=== PATIENT | male | born 1995 | race African-American/Black ===

== ENCOUNTER 2019-03-05 01:35 | Emergency (ER) | payer OTHER ==
[2019-03-05] MEDS ORDERED: NA CHLORIDE 0.9% 1,000 ML ONE (02:21)
[2019-03-05] MEDS ORDERED: ONDANSETRON 4 MG/2 ML VIAL ONE (02:21)
[2019-03-05 03:03] LABS: Absolute Lymphocytes (CBC) 2.3 K/uL (0.7-4.9); Absolute Monocytes 0.5 K/uL (0.1-1.3); Absolute Neutrophil 1.9 K/uL (1.8-8.0); Basophils % 0.3 % (0-1.3); Eosinophils % 4.4 % (0-4.4); Hematocrit 47.5 % (39.6-49.0); Lymphocytes % 46.4 % (15.3-44.8); MPV 8.8 fL (7.6-11.3); Monocytes % 9.6 % (3.3-12.3); RBC Red Blood Cell Count 5.27 M/uL (4.33-5.43)
[2019-03-05 03:18] LABS: ALT/SGPT 24 U/L (12-78); AST/SGOT 21 U/L (15-37); Albumin 3.9 g/dL (3.4-5.0); Alkaline Phosphatase 91 U/L (45-117); BUN Blood Urea Nitrogen 8 mg/dL (7-18); Bicarbonate 28 mmol/L (21-32); Bilirubin Direct 0.1 mg/dL (0-0.2); Bilirubin Total 0.3 mg/dL (0.2-1.0); Glucose Level 85 mg/dL (74-106); Lipase 200 U/L (73-393); Potassium 3.7 mmol/L (3.5-5.1); Protein, Total 7.4 g/dL (6.4-8.2); Sodium Level 141 mmol/L (136-145)
--- NOTE | 2019-03-05 03:28 | EDPHYS ---
Physician Documentation [facility] Name: Michael Garibay Age: 23 yrs Sex: Male : 1995 Arrival Date: 03/05/2019 Time: 01:40 Bed 7 Private MD: ED Physician Sameer Landry HPI: 03/05 01:57 This 23 yrs old Black Male presents to ER via Ambulatory with complaints of Cough, jr8 Vomiting. 01:57 The patient or guardian reports cough, that is intermittent, described as mild, with no jr8 sputum. Onset: The symptoms/episode began/occurred gradually, 2 week(s) ago. Severity of symptoms: in the emergency department the symptoms have improved, mildly. Modifying factors: The symptoms are alleviated by nothing, the symptoms are aggravated by nothing. Associated signs and symptoms: Pertinent positives: nausea, vomiting, Pertinent negatives: chest pain, diarrhea, fever, sore throat. The patient has not experienced similar symptoms in the past. The patient has not recently seen a physician. Patient presents to the ER for the complaint of vomiting. Mother has accompanied patient and reports that he has had a dry cough with congestion for 2 weeks, but she became concerned when he woke her up this evening vomiting. The patient reports vomiting x 3 episodes this evening. Denies fever, abdominal pain, current nausea, urinary symptoms, diarrhea and constipation. Historical: - Allergies: 01:56 No Known Allergies; lp1 - Home Meds: 01:56 None [Active]; lp1 - PMHx: 01:56 None; lp1 - PSHx: 01:56 None; lp1 - Immunization history:: Adult Immunizations up to date. - Social history:: Smoking status: Patient/guardian denies using tobacco. - Ebola Screening: : No symptoms or risks identified at this time. ROS: 01:57 Constitutional: Negative for fever, chills, and weight loss, ENT: Negative for injury, jr8 pain, and discharge, Cardiovascular: Negative for chest pain, palpitations, and edema. 01:57 Abdomen/GI: Negative for abdominal pain, nausea, diarrhea, and constipation. 01:57 MS/Extremity: Negative for injury and deformity, Skin: Negative for injury, rash, and discoloration, Neuro: Negative for headache, weakness, numbness, tingling, and seizure. 01:57 Respiratory: Positive for cough, Negative for orthopnea, shortness of breath, sputum production, wheezing. 01:57 Abdomen/GI: Positive for vomiting. Exam: 02:01 Constitutional: This is a well developed, well nourished patient who is awake, alert, jr8 and in no acute distress. ENT: Nares patent. No nasal discharge, no septal abnormalities noted. Tympanic membranes are normal and external auditory canals are clear. Oropharynx with mild erethyema, but without swelling, or masses, exudates, or evidence of obstruction, uvula midline. Mucous membranes moist. Cardiovascular: Regular rate and rhythm with a normal S1 and S2. No gallops, murmurs, or rubs. Normal PMI, no JVD. No pulse deficits. Respiratory: Lungs have equal breath sounds bilaterally, clear to auscultation and percussion. No rales, rhonchi or wheezes noted. No increased work of breathing, no retractions or nasal flaring. Abdomen/GI: Soft, non-tender, with normal bowel sounds. No distension or tympany. No guarding or rebound. No evidence of tenderness throughout. Skin: Warm, dry with normal turgor. Normal color with no rashes, no lesions, and no evidence of cellulitis. MS/ Extremity: Pulses equal, no cyanosis. Neurovascular intact. Full, normal range of motion. Neuro: Awake and alert, GCS 15, oriented to person, place, time, and situation. Cranial nerves II-XII grossly intact. Motor strength 5/5 in all extremities. Sensory grossly intact. Cerebellar exam normal. Normal gait. Vital Signs: 01:57 BP 115 / 75; Pulse 73; Resp 16; Temp 98.4(O); Pulse Ox 99% on R/A; Weight 83.91 kg; lp1 Height 6 ft. 2 in. (187.96 cm); Pain 0/10; 03:00 BP 116 / 71; Pulse 70; Resp 16; Pulse Ox 100% on R/A; lp1 03:38 BP 114 / 72; Pulse 63; Resp 16; Pulse Ox 100% on R/A; lp1 01:57 Body Mass Index 23.75 (83.91 kg, 187.96 cm) lp1 MDM: 01:45 Patient medically screened. [facility] 03:27 Data reviewed: vital signs, nurses notes, lab test result(s), and as a result, I will jr8 discharge patient. Data interpreted: Pulse oximetry: on room air is 99 %. Interpretation: normal. Counseling: I had a detailed discussion with the patient and/or guardian regarding: the historical points, exam findings, and any diagnostic results supporting the discharge/admit diagnosis, lab results, the need for outpatient follow up, a family practitioner, to return to the emergency department if symptoms worsen or persist or if there are any questions or concerns that arise at home. Response to treatment: the patient's symptoms have markedly improved after treatment, patient is well hydrated. 03/05 01:57 Order name: Strep; Complete Time: 03:27 03/05 01:57 Order name: Basic Metabolic Panel; Complete Time: 03:19 03/05 01:57 Order name: CBC with Diff; Complete Time: 03:17 03/05 01:57 Order name: Creatinine for Radiology; Complete Time: 03:19 03/05 01:57 Order name: Hepatic Function; Complete Time: 03:19 03/05 01:57 Order name: Lipase; Complete Time: 03:19 03/05 01:57 Order name: IV Saline Lock; Complete Time: 02:15 03/05 01:57 Order name: Labs collected and sent; Complete Time: 02:03/05 03:28 Order name: Throat Culture EDMS Administered Medications: 02:14 Drug: NS 0.9% 1000 ml Route: IV; Rate: 1000 ml; Site: right antecubital; lp1 03:00 Follow up: IV Status: Completed infusion; IV Intake: 1000ml lp1 02:15 Drug: Zofran 4 mg Route: IVP; Site: right antecubital; lp1 02:45 Follow up: Response: No adverse reaction lp1 Disposition: 04:07 Co-signature as Attending Physician, Sameer Landry MD. rn Disposition: 03/05/19 03:28 Discharged to Home. Impression: Vomiting. - Condition is Stable. - Discharge Instructions: Nausea and Vomiting, Adult. - Prescriptions for Zofran 4 mg Oral Tablet - take 1 tablet by ORAL route every 12 hours As needed; 20 tablet. - Medication Reconciliation Form, Thank You Letter, Antibiotic Education, Prescription Opioid Use form. - Follow up: Private Physician; When: 2 - 3 days; Reason: Recheck today's complaints, Continuance of care, Re-evaluation by your physician. - Problem is new. - Symptoms have improved. Signatures: Dispatcher [employer] EDSameer Arriaga MD MD rn Pena, Laura, RN RN lp1 Zack Whitten PA PA jr8 Corrections: (The following items were deleted from the chart) 03:39 03:28 03/05/2019 03:28 Discharged to Home. Impression: Vomiting. Condition is Stable. lp1 Forms are Medication Reconciliation Form, Thank You Letter, Antibiotic Education, Prescription Opioid Use. Follow up: Private Physician; When: 2 - 3 days; Reason: Recheck today's complaints, Continuance of care, Re-evaluation by your physician. Problem is new. Symptoms have improved. jr8
--- NOTE | 2019-03-05 03:28 | ER ---
Nurse's Notes [facility] Name: Michael Garibay Age: 23 yrs Sex: Male : 1995 Arrival Date: 03/05/2019 Time: 01:40 Bed 7 Private MD: Diagnosis: Vomiting Presentation: 03/05 01:55 Presenting complaint: Mother states: "He's been sick with a cold for almost 2 weeks, lp1 but tonight he started vomiting"; Denies any fever at home; States vomiting 3 times, cough, congestion; Denies any diarrhea, nausea. Transition of care: patient was not received from another setting of care. Onset of symptoms was March 05, 2019. Risk Assessment: Do you want to hurt yourself or someone else? Patient reports no desire to harm self or others. Initial Sepsis Screen: Does the patient meet any 2 criteria? No. Patient's initial sepsis screen is negative. Does the patient have a suspected source of infection? No. Patient's initial sepsis screen is negative. Care prior to arrival: None. 01:55 Method Of Arrival: Ambulatory lp1 01:55 Acuity: KAREN 3 lp1 Historical: - Allergies: 01:56 No Known Allergies; lp1 - Home Meds: 01:56 None [Active]; lp1 - PMHx: 01:56 None; lp1 - PSHx: 01:56 None; lp1 - Immunization history:: Adult Immunizations up to date. - Social history:: Smoking status: Patient/guardian denies using tobacco. - Ebola Screening: : No symptoms or risks identified at this time. Screenin:58 Abuse screen: Denies threats or abuse. Denies injuries from another. Nutritional lp1 screening: No deficits noted. Tuberculosis screening: No symptoms or risk factors identified. Fall Risk None identified. Assessment: 01:57 General: Appears in no apparent distress. Behavior is appropriate for age, Reports lp1 feeling ill for fatigue for. Pain: Denies pain. Neuro: Level of Consciousness is awake, alert, obeys commands. Cardiovascular: Patient's skin is warm and dry. Respiratory: Respiratory effort is even, unlabored, Breath sounds are clear bilaterally. GI: Abdomen is flat, non-distended, Bowel sounds present X 4 quads. Reports vomiting, Patient currently denies diarrhea, nausea. : No signs and/or symptoms were reported regarding the genitourinary system. EENT: No signs and/or symptoms were reported regarding the EENT system. Derm: Skin is intact, Skin is dry, Skin is normal. Musculoskeletal: No deficits noted. 03:00 Reassessment: Patient appears in no apparent distress at this time. Patient and/or lp1 family updated on plan of care and expected duration. Pain level reassessed. Patient states symptoms have improved. Vital Signs: 01:57 BP 115 / 75; Pulse 73; Resp 16; Temp 98.4(O); Pulse Ox 99% on R/A; Weight 83.91 kg; lp1 Height 6 ft. 2 in. (187.96 cm); Pain 0/10; 03:00 BP 116 / 71; Pulse 70; Resp 16; Pulse Ox 100% on R/A; lp1 03:38 BP 114 / 72; Pulse 63; Resp 16; Pulse Ox 100% on R/A; lp1 01:57 Body Mass Index 23.75 (83.91 kg, 187.96 cm) lp1 ED Course: 01:40 Patient arrived in ED. mr 01:45 Zack Whitten PA is PHCP. jr8 01:45 Sameer Landry MD is Attending Physician. jr8 01:54 Evelyn Farias RN is Primary Nurse. lp1 01:56 Triage completed. lp1 01:56 Arm band placed on left wrist. lp1 01:58 Patient has correct armband on for positive identification. Pulse ox on. NIBP on. lp1 02:05 Inserted saline lock: 20 gauge in right antecubital area, using aseptic technique. lp1 Blood collected. By Liana Maldonado RN. 03:32 No provider procedures requiring assistance completed. lp1 03:39 IV discontinued, No redness/swelling at site. Pressure dressing applied. lp1 Administered Medications: 02:14 Drug: NS 0.9% 1000 ml Route: IV; Rate: 1000 ml; Site: right antecubital; lp1 03:00 Follow up: IV Status: Completed infusion; IV Intake: 1000ml lp1 02:15 Drug: Zofran 4 mg Route: IVP; Site: right antecubital; lp1 02:45 Follow up: Response: No adverse reaction lp1 Intake: 03:00 IV: 1000ml; Total: 1000ml. lp1 Outcome: 03:28 Discharge ordered by MD. potter 03:39 Discharged to home ambulatory, with family. lp1 03:39 Condition: good 03:39 Discharge instructions given to patient, family, Instructed on discharge instructions, follow up and referral plans. medication usage, Demonstrated understanding of instructions, follow-up care, medications, Prescriptions given X 1. 03:39 Patient left the ED. lp1 Signatures: Megan Mccormick mr Evelyn Farias RN RN lp1 Zack Whitten PA PA jr8 Corrections: (The following items were deleted from the chart) 01:59 01:57 GI: Abdomen is flat, non-distended, Bowel sounds present X 4 quads. Patient lp1 currently denies diarrhea, nausea, lp1
== END 2019-03-05 03:39 | disposition home or self-care (01) ==
LOC: ER 01:35
DX: R11.10 Vomiting, unspecified (principal); R05 Cough
CPT/HCPCS: 36415; 80048; 80076; 83690; 85025; 87070; 87081; 96361; 96374; 99284; J2405; J7030

== ENCOUNTER 2020-12-30 14:00 | Emergency (ER) | payer SELFPAY ==
--- NOTE | 2020-12-30 17:30 | ER ---
Nurse's Notes [facility] Name: Michael Garibay Age: 25 yrs Sex: Male : 1995 Arrival Date: 12/30/2020 Time: 14:03 Bed Waiting Private MD: Diagnosis: Presentation: 12/30 14:07 Chief complaint: Patient states: Abd pain/cramping with N/V/D for 1 day. No fever or hb dysuria. Coronavirus screen: Client denies travel out of the [place] in the last 14 days. At this time, the client does not indicate any symptoms associated with coronavirus-19. Ebola Screen: Patient denies travel to an Ebola-affected area in the 21 days before illness onset. Initial Sepsis Screen: Does the patient meet any 2 criteria? HR > 90 bpm. No. Patient's initial sepsis screen is negative. Does the patient have a suspected source of infection? Yes: Acute abdominal pain. Risk Assessment: Do you want to hurt yourself or someone else? Patient reports no desire to harm self or others. Onset of symptoms was December 30, 2020. 14:07 Method Of Arrival: Ambulatory hb 14:07 Acuity: KAREN 3 hb Historical: - Allergies: 14:09 No Known Allergies; hb - PMHx: 14:09 None; hb - PSHx: 14:09 None; hb - Immunization history:: Flu vaccine is not up to date. - Social history:: Smoking status: Patient denies any tobacco usage or history of. Vital Signs: 14:07 BP 136 / 80; Pulse 107; Resp 17; Temp 98.3; Pulse Ox 98% ; Height 6 ft. 2 in. (187.96 hb cm); Pain 5/10; ED Course: 14:03 Patient arrived in ED. ds1 14:09 Triage completed. hb 14:09 Arm band placed on. hb Administered Medications: No medications were administered Outcome: 17:30 Patient left the ED. hb Signatures: Esther Couch ds1 Ynes Montano, RN RN hb
[2020-12-30 17:41] VITALS: BP 136/80; TEMP 98.3; O2SAT 98
== END 2020-12-30 17:30 | disposition left against medical advice (07) ==
LOC: ER 14:00
DX: Z53.21 Procedure and treatment not carried out due to patient leaving prior to being seen by health care provider (principal)
CPT/HCPCS: 99281